=== PATIENT | male | born 1975 | race Two or more races ===

== ENCOUNTER 2025-05-21 15:21 | Inpatient (IN) | payer MEDICARE, OTHER ==
[~2025-05-21] VITALS: Ht 177.8 cm; Wt 71.2 kg
[2025-05-21] MEDS ORDERED: OLANZAPINE 10 MG VIAL IM ONE (15:35)
[2025-05-21] MEDS ORDERED: LORAZEPAM INJ 2 MG/ML VIAL ONE (15:35)
[2025-05-21] MEDS ORDERED: ARIP662S IM (15:43)
[2025-05-21] MEDS: OLANZAPINE 10 MG VIAL IM ONE (15:43)
[2025-05-21] MEDS: LORAZEPAM INJ 2 MG/ML VIAL IM ONE (15:43)
[2025-05-21 15:59] LABS: PLATELET COUNT (AUTO) 201 K/uL (150-450); RED BLOOD CELL COUNT(AUTO) 4.65 MIL/uL (4.5-6.0); RED CELL DISTRIBUTION WIDTH 13.8 % (11.5-15.0); WHITE BLOOD COUNT (AUTO) 4.8 K/uL (4.3-11.0)
[2025-05-21 16:06] LABS: CALCIUM, SERUM 9.4 mg/dL (8.5-10.1); CREATININE 1.5 mg/dL (0.6-1.3); SODIUM SERUM 141 mmol/L (136-145); UREA NITROGEN, BLOOD 8 mg/dL (7-18)
[2025-05-21 16:12] LABS: ASPARTATE AMINOTRANSFERASE 18 U/L (15-37); TOTAL PROTEIN, SERUM 6.9 g/dL (6.4-8.2)
[2025-05-21 16:15] LABS: ALCOHOL, BLOOD < 3 mg/dL (0-10)
[2025-05-21 16:53] LABS: APPEARANCE,URINE CLEAR (CLEAR); BLOOD, URINE NEGATIVE Ery/uL (NEGATIVE); LEUKOCYTE ESTERASE ,URINE NEGATIVE (NEGATIVE); NITRITE, URINE NEGATIVE (NEGATIVE); UGLUCOSE NEGATIVE (NEGATIVE)
[2025-05-21 17:05] LABS: AMPHETAMINE, URINE NEGATIVE (NEGATIVE); BARBITURATE, URINE NEGATIVE (NEGATIVE); BENZODIAZEPINE, URINE NEGATIVE (NEGATIVE); CANNABINOID, URINE NEGATIVE (NEGATIVE); COCCAINE, URINE NEGATIVE (NEGATIVE); OPIATE, URINE NEGATIVE (NEGATIVE)
[2025-05-22] MEDS ORDERED: MAGNESIUM HYDROXIDE 30 ML UDC PO PRN (02:00)
[2025-05-22] MEDS ORDERED: MAG HYDROX/AL HYDROX/SIMETH 30 ML UDC PO PRN (02:00)
[2025-05-22] MEDS ORDERED: ACETAMINOPHEN 325 MG TABLET PO PRN (02:00)
[2025-05-22] MEDS ORDERED: TEMAZEPAM 7.5 MG CAPSULE PO PRN (02:00)
[2025-05-22] MEDS ORDERED: LORAZEPAM 1 MG TABLET PO PRN (02:00)
[2025-05-22] MEDS: BLOOD SUGAR DIAGNOSTIC 1 EACH STRIP IN ONE (03:01)
[2025-05-22] MEDS: HALOPERIDOL LACTATE INJ 5 MG/ML VIAL IM ONE (07:22)
[2025-05-22] MEDS: LORAZEPAM INJ 2 MG/ML VIAL IM ONE (07:22)
[2025-05-22] MEDS: NICOTINE PATCH (21MG) 21 MG PATCH.TD24 TD SCH (09:00)
[2025-05-22] MEDS: LORAZEPAM INJ 2 MG/ML VIAL IM STA (17:00)
[2025-05-22] MEDS: HALOPERIDOL LACTATE INJ 5 MG/ML VIAL IM STA (17:00)
[2025-05-22 22:30] VITALS: BP 125/70; TEMP 98
[2025-05-23] MEDS: HALOPERIDOL LACTATE INJ 5 MG/ML VIAL IM STA (03:36)
[2025-05-23] MEDS: LORAZEPAM INJ 2 MG/ML VIAL IM STA (03:36)
[2025-05-23] MEDS: ENSURE ENLIVE 237 ML LIQUID (VANILLA) PO SCH (17:23)
[2025-05-25 08:27] VITALS: BP 90/64; TEMP 98; O2SAT 98
[2025-05-25 16:00] VITALS: BP 92/69; TEMP 98.8; O2SAT 99
[2025-05-26 08:33] VITALS: BP 91/62; TEMP 98.1; O2SAT 98
[2025-05-26 16:00] VITALS: BP 98/55; TEMP 98; O2SAT 98
[2025-05-26] MEDS: LORAZEPAM INJ 2 MG/ML VIAL IV ONE (16:27)
[2025-05-26] MEDS: HALOPERIDOL LACTATE INJ 5 MG/ML VIAL IM ONE (16:27)
[2025-05-26 19:56] VITALS: BP 93/62; TEMP 98.4; O2SAT 98
[2025-05-27 20:02] VITALS: BP 93/68; TEMP 98.2; O2SAT 99
[2025-05-28 08:00] VITALS: BP 88/63; TEMP 98; O2SAT 99
[2025-05-28] MEDS ORDERED: OLANZAPINE 10 MG VIAL IM ONE (11:00)
[2025-05-28] MEDS ORDERED: OLANZAPINE 10 MG VIAL IM PRN (11:00)
[2025-05-28 16:00] VITALS: BP 75/53; TEMP 98.1; O2SAT 98
[2025-05-28 20:44] VITALS: BP 96/60; TEMP 98; O2SAT 100
[2025-05-29 16:00] VITALS: BP 98/61; TEMP 97.7; O2SAT 100
[2025-05-29 20:46] VITALS: BP 118/69; TEMP 97.9; O2SAT 100
[2025-05-30 08:01] VITALS: BP 90/75; TEMP 97.9; O2SAT 100
[2025-05-30 16:09] VITALS: BP 88/57; TEMP 97.8; O2SAT 98
[2025-05-30 20:54] VITALS: BP 96/65; TEMP 97.9; O2SAT 100
[2025-05-30] MEDS: LORAZEPAM 1 MG TABLET PO PRN (22:12)
[2025-05-31] MEDS: TEMAZEPAM 7.5 MG CAPSULE PO PRN (01:04)
[2025-05-31 08:00] VITALS: BP 100/61; TEMP 98.2; O2SAT 99
[2025-05-31 16:00] VITALS: BP 96/64; TEMP 98.1; O2SAT 98
[2025-05-31] MEDS: LORAZEPAM INJ 2 MG/ML VIAL IM STA (16:54)
[2025-05-31] MEDS: HALOPERIDOL LACTATE INJ 5 MG/ML VIAL IM STA (16:54)
[2025-05-31 20:25] VITALS: BP 103/72; TEMP 97.5; O2SAT 100
[2025-06-01 08:00] VITALS: BP 105/77; TEMP 97.7; O2SAT 100
[2025-06-01] MEDS: HALOPERIDOL LACTATE INJ 5 MG/ML VIAL IM ONE (11:40)
[2025-06-01] MEDS: LORAZEPAM INJ 2 MG/ML VIAL IM ONE (11:41)
[2025-06-01 16:02] VITALS: BP 92/70; TEMP 98; O2SAT 99
[2025-06-01 20:52] VITALS: BP 109/78; TEMP 98; O2SAT 100
[2025-06-02 08:00] VITALS: BP 102/69; TEMP 97.5; O2SAT 99
[2025-06-02 08:14] LABS: ASPARTATE AMINOTRANSFERASE 73.0 U/L (15-37); CALCIUM, SERUM 9.0 mg/dL (8.5-10.1); CREATININE 1.0 mg/dL (0.6-1.3); PHOSPHORUS 3.6 mg/dL (2.5-4.9); SODIUM SERUM 135.0 mmol/L (136-145); TOTAL PROTEIN, SERUM 6.9 g/dL (6.4-8.2); UREA NITROGEN, BLOOD 17.0 mg/dL (7-18)
[2025-06-02 08:28] LABS: PLATELET COUNT (AUTO) 209 K/uL (150-450); RED BLOOD CELL COUNT(AUTO) 4.22 MIL/uL (4.5-6.0); RED CELL DISTRIBUTION WIDTH 14.5 % (11.5-15.0); WHITE BLOOD COUNT (AUTO) 5.2 K/uL (4.3-11.0)
[2025-06-02] MEDS: LORAZEPAM 1 MG TABLET PO ONE (08:29)
[2025-06-02] MEDS: PALIPERIDONE PALMITATE 234 MG/1.5 ML SYRINGE IM ONE (13:54)
[2025-06-02 16:00] VITALS: BP 99/74; TEMP 97.5; O2SAT 97
== END 2025-06-02 17:50 | disposition home or self-care (01) | DRG 885 ==
LOC: ER 15:22 → GPS 20:22
PROVIDERS: ADMIT Psychiatry & Neurology Psychiatry
DX: F25.9 Schizoaffective disorder, unspecified (principal); N18.9 Chronic kidney disease, unspecified; N17.0 Acute kidney failure with tubular necrosis; F29 Unspecified psychosis not due to a substance or known physiological condition; F41.9 Anxiety disorder, unspecified; Z20.822 Contact with and (suspected) exposure to COVID-19; F31.9 Bipolar disorder, unspecified; Z91.199 Patient's noncompliance with other medical treatment and regimen due to unspecified reason; Z73.6 Limitation of activities due to disability; F39 Unspecified mood [affective] disorder
CPT/HCPCS: 36415; 80048-TC; 80053-TC; 80076-TC; 83735-TC; 84100-TC; 85025-TC; 87081-TC; 97110-TC; 97116-TC; 97530-TC; G0480; J1200; J1630; J2060; J2426; J3490